=== PATIENT | female | born 1970 | race Caucasian/White ===

== ENCOUNTER 2019-03-16 | Emergency (ER) | payer MEDICAID ==
[~2019-03-16] VITALS: Ht 157.5 cm; Wt 100.2 kg
[2019-03-16 00:03] VITALS: Ht 157.5 cm; Wt 100.2 kg
[2019-03-16 01:11] LABS: UA SPECIFIC GRAVITY 1.025 (1.005-1.035); microscopic required? YES; urine erythrocyte NEGATIVE (NEGATIVE)
[2019-03-16 02:13] LABS: BASOPHIL % 0.2 % (0-2); PLATELET COUNT 312 x10^3mcL (130-400)
[2019-03-16 02:19] LABS: CALCIUM 9.6 mg/dL (8.5-10.1); CHLORIDE SERUM 104 mmol/L (98-107); CREATININE SERUM 0.7 mg/dL (0.6-1.0); GFR1 > 60 mL/min; GLUCOSE SERUM 85 mg/dL (74-106); POTASSIUM SERUM 3.9 mmol/L (3.5-5.1); SODIUM SERUM 141 mmol/L (136-145)
[2019-03-16 02:23] LABS: ALKALINE PHOSPHATASE 98 U/L (46-116); ALT/SGPT 62 U/L (14-59); AST/SGOT 30 U/L (15-37); BILIRUBIN TOTAL 0.44 mg/dL (0.20-1.00); LIPASE 104 IU/L (73-393)
[2019-03-16 02:30] LABS: TOTAL PROTEIN, SERUM 8.7 g/dL (6.4-8.2)
[2019-03-16 02:34] LABS: RED CELL DISTRIBUTION WIDTH 15.4 % (11.5-14.5)
[2019-03-16 03:41] VITALS: BP 124/65
== END 2019-03-16 03:41 | disposition home or self-care (01) ==
LOC: ED
PROVIDERS: Emergency Medicine
DX: N39.0 Urinary tract infection, site not specified (principal); Z90.49 Acquired absence of other specified parts of digestive tract; Z98.890 Other specified postprocedural states
CPT/HCPCS: J2405; J3010; J7030